=== PATIENT | female | born 1935 | race Caucasian/White ===

== ENCOUNTER 2022-03-14 15:23 | Emergency (ER) | payer OTHER, MEDICAID ==
[~2022-03-14] VITALS: Ht 160 cm; Wt 72.6 kg
[2022-03-14 15:30] VITALS: BP 140/84
--- NOTE | 2022-03-14 16:02 | NUR ---
86 Y/O F BIBA FROM [facility] C/O BLACK STOOL WITH DIARRHEA SINCE 0300 TODAY. PATIENT A&OX4, AMBULATORY WITH WALKER, STATES 5 EPISODES OF DIARRHEA "BLACK TARRY STOOL." DENIES ABD PAIN, N/V, CHEST PAIN, FEVER, CHILLS, DYSURIA, URINARY SYMPTOMS. PT PLACED ONTO CABLE PULLER. BED LOCKED IN LOWEST POSITION, SIDE RAILS X 1. PMH:DM2, HTN, RA, CELLULITIS, MEDS: UNABLE TO OBTAIN ALLERGY: PCN, LIPITOR AND TRICOR BLOOD GLUCOSE: 151
[2022-03-14 16:33] LABS: BASOPHILS % (AUTO) 0.4 % (0.0-2.0); EOSINOPHILS # (AUTO) 0.2 K/uL (0-0.4); EOSINOPHILS % (AUTO) 2.3 % (0.0-4.0); HEMATOCRIT 41.4 % (36-48); HEMOGLOBIN 13.4 g/dL (12.0-16.0); LYMPHOCYTES # (AUTO) 3.3 K/uL (2.5-16.5); LYMPHOCYTES % (AUTO) 39.5 % (20.5-51.1); MEAN CORPUSCULAR HEMOGLOBIN 32 pg (27-31); MEAN CORPUSCULAR HGB CONC 32 g/dL (33-37); MEAN CORPUSCULAR VOLUME 98.1 fL (80-94); MONOCYTES % (AUTO) 12.1 % (1.7-9.3); NEUTROPHILS # (AUTO) 3.9 K/uL (1.8-7.7); NEUTROPHILS % (AUTO) 45.7 % (42.2-75.2); PLATELET COUNT (AUTO) 258 K/uL (140-450); RED BLOOD CELL COUNT(AUTO) 4.23 MIL/uL (4.20-5.40); RED CELL DISTRIBUTION WIDTH 14.8 % (11.6-13.7); WHITE BLOOD COUNT (AUTO) 8.4 K/uL (4.8-10.8)
[2022-03-14 16:46] LABS: ALBUMIN 3.4 g/dL (3.4-5.0); ANION GAP 13.7 (8-16); ASPARTATE AMINOTRANSFERASE 16 U/L (15-37); CARBON DIOXIDE 25.8 mmol/L (21-32); CHLORIDE 107 mmol/L (98-107); CREATININE 1.6 mg/dL (0.6-1.3); GLUCOSE 155 mg/dL (74-106); MAGNESIUM 1.9 mg/dL (1.8-2.4); POTASSIUM 4.5 mmol/L (3.5-5.1); SODIUM SERUM 142 mmol/L (136-145); TOTAL BILIRUBIN 0.3 mg/dL (0.0-1.0); UREA NITROGEN, BLOOD 29 mg/dL (7-18)
[2022-03-14] MEDS ORDERED: NACL 0.9% 1,000 ML IV ONE (17:20)
[2022-03-14 17:44] VITALS: BP 106/58
--- NOTE | 2022-03-14 17:45 | NUR ---
Pt resting in position of comfort reading book. IVF continued. monitor technician in place. SpO2 96% on room air. No medical complaint at this time. Denies pain. Bed locked in lowest position, side rails x 1.
--- NOTE | 2022-03-14 19:20 | NUR ---
Report and transfer of care given to JOSE Campbell.
--- NOTE | 2022-03-14 19:32 | NUR ---
Patient discharged with v/s stable. Written and verbal after care instructions given and explained. Patient verbalized understanding. Ambulatory with steady gait. All questions addressed prior to discharge. Advised to follow up with PMD. Blood work results handed to patient. Wheelchair assisted out to lobby (son w/ transportation) ETA 20 mins.
== END 2022-03-14 19:32 | disposition home or self-care (01) ==
LOC: MED 15:23
DX: R19.7 Diarrhea, unspecified (principal); E86.0 Dehydration; N28.9 Disorder of kidney and ureter, unspecified; E11.9 Type 2 diabetes mellitus without complications; I10 Essential (primary) hypertension; E07.9 Disorder of thyroid, unspecified; Z90.710 Acquired absence of both cervix and uterus; Z85.038 Personal history of other malignant neoplasm of large intestine; Z88.0 Allergy status to penicillin; Z88.8 Allergy status to other drugs, medicaments and biological substances
CPT/HCPCS: 36415; 80053; 83735; 85025; 96360; 99283; J7030

== ENCOUNTER 2022-09-06 21:49 | Inpatient (IN) | payer OTHER ==
[~2022-09-06] VITALS: Ht 172.7 cm; Wt 97.5 kg
--- NOTE | 2022-09-06 21:53 | NUR ---
PT JAMES BLS. TAKEN TO BED 8
[2022-09-06 21:54] VITALS: BP 95/56
--- NOTE | 2022-09-06 22:00 | NUR ---
86 Y/O F presents with flu like symptoms and diarrhea xtoday. pt has a cough with congestion, runny nose and eyes xthursday. pt os ambulatory with walker, A&Ox4, skin intact, denies blood thinners. pt stated she had breast cancer on the L side. pt denies at pain at the moment. PMH- breast cancer L side, type II diabetes, Rheumatoid Arthhritis, heart murmer Allergies- penicillins, tricot, lipitor
[2022-09-06] MEDS ORDERED: FERR325E14 PO (22:05)
--- NOTE | 2022-09-06 22:21 | NUR ---
Dr. Heaton examining patient.
[2022-09-06] MEDS ORDERED: OMEP40EC23 PO (22:28)
[2022-09-06] MEDS ORDERED: MULT-2246 PO (22:28)
[2022-09-06] MEDS ORDERED: ACET-8905 PO (22:28)
[2022-09-06] MEDS ORDERED: VITB12 PO (22:28)
[2022-09-06] MEDS ORDERED: GLIP10TE PO (22:28)
[2022-09-06] MEDS ORDERED: SYN.1 PO (22:28)
[2022-09-06] MEDS ORDERED: BISA-218 RC (22:28)
[2022-09-06] MEDS ORDERED: GABA400C PO (22:28)
[2022-09-06] MEDS ORDERED: ROSU10TA1 PO (22:28)
[2022-09-06] MEDS ORDERED: METF-352 PO (22:28)
[2022-09-06] MEDS ORDERED: [UNRECOGNIZED DRUG - CODE] PO (22:28)
[2022-09-06] MEDS ORDERED: RIVA20TA4 PO (22:28)
[2022-09-06] MEDS ORDERED: ACET-2619 PO (22:28)
[2022-09-06] MEDS ORDERED: FOLI1TAB90 PO (22:28)
[2022-09-06] MEDS ORDERED: VITA1TAB44 PO (22:28)
[2022-09-06] MEDS ORDERED: DOCU-2 PO (22:28)
[2022-09-06] MEDS ORDERED: ASCO500T95 PO (22:28)
[2022-09-06] MEDS ORDERED: CHOL200072 PO (22:28)
[2022-09-06] MEDS ORDERED: LISI-487 PO (22:28)
[2022-09-06] MEDS ORDERED: GABA-689 PO ×2 (22:28)
[2022-09-06] MEDS ORDERED: [UNRECOGNIZED DRUG - CODE] PO (22:28)
[2022-09-06] MEDS ORDERED: NA P133E RC (22:30)
[2022-09-06] MEDS ORDERED: AMIO200T66 PO (22:30)
--- NOTE | 2022-09-06 22:31 | NUR ---
Med-rec reviewed.
[2022-09-06] MEDS ORDERED: NACL 0.9% 1,000 ML IV ONE (22:40)
--- NOTE | 2022-09-06 22:42 | NUR ---
xray at bedside
--- NOTE | 2022-09-06 22:50 | NUR ---
lab at bedside
[2022-09-06] MEDS ORDERED: DEXAMETHASONE 10 MG/ML VIAL IVP ONE (22:55)
[2022-09-06] MEDS ORDERED: LEVOFLOXACIN 750 MG/D5W PREMIX 150 ML IV ONE (22:55)
[2022-09-06 23:18] LABS: RED CELL DISTRIBUTION WIDTH 13.9 % (11.6-13.7); WHITE BLOOD COUNT (AUTO) 6.3 K/uL (4.8-10.8)
--- NOTE | 2022-09-06 23:25 | NUR ---
Dr. xavier at bedside
[2022-09-06 23:27] LABS: MEAN CORPUSCULAR HEMOGLOBIN 31 pg (27-31); MEAN CORPUSCULAR HGB CONC 33 g/dL (33-37); MEAN CORPUSCULAR VOLUME 93.8 fL (80-94); PLATELET COUNT (AUTO) 228 K/uL (140-450); RED BLOOD CELL COUNT(AUTO) 3.84 MIL/uL (4.20-5.40)
[2022-09-06 23:33] LABS: ALBUMIN 2.9 g/dL (3.4-5.0); ANION GAP 18.5 (8-16); ASPARTATE AMINOTRANSFERASE 17 U/L (15-37); CARBON DIOXIDE 22.6 mmol/L (21-32); CHLORIDE 98 mmol/L (98-107); GLUCOSE 262 mg/dL (74-106); POTASSIUM 4.1 mmol/L (3.5-5.1); SODIUM SERUM 135 mmol/L (136-145); TOTAL BILIRUBIN 0.5 mg/dL (0.0-1.0); UREA NITROGEN, BLOOD 36 mg/dL (7-18)
[2022-09-06 23:35] LABS: LIPASE 80 U/L (73-393)
[2022-09-06 23:42] LABS: LYMPHOCYTES % (MANUAL) 17 % (20-46); MONOCYTES % (MANUAL) 31 % (5-12)
--- NOTE | 2022-09-07 00:30 | NUR ---
Patient will be admitted to care of Dr. Harris. Admited to Tele. Will go to [id number]. Belongings list completed. Report to Joyce GARCIA.
[2022-09-07 00:55] VITALS: BP_SYST 116; BP_DIAS 7; BP_DIAS 70
--- NOTE | 2022-09-07 00:55 | NUR ---
RECEIVED PT A NEW ADMIT FROM ER. PATIENT IS AWAKE,ALERT AND ORIENTED X 4. DENIES PAIN. DENIES SHORTNESS OF BREATH. SKIN WARM AND DRY TOUCH. ORIENTED TO MST ROUTINE. BED IN THE LOWEST AND LOCKED POSITION FOR SAFETY, CALL LIGHT IN REACH, ENCOURAGED TO CALL IF ASSISTANCE IS NEEDED. PT VERBALLY AGREED.
[2022-09-07 04:00] VITALS: BP 124/75
[2022-09-07] MEDS ORDERED: ACETAMINOPHEN 325 MG TAB PO PRN (06:40)
[2022-09-07] MEDS ORDERED: MAG SULF 2000 MG/WATER PREMIX 50 ML IV PRN (06:40)
[2022-09-07] MEDS ORDERED: MORPHINE SULFATE 2 MG/ML SYR IVP PRN (06:40)
[2022-09-07] MEDS ORDERED: ALBUTEROL 0.083% 2.5 MG/3 ML NEBU INH PRN (06:40)
[2022-09-07] MEDS ORDERED: ONDANSETRON 4 MG/2 ML VIAL IVP PRN (06:40)
[2022-09-07] MEDS ORDERED: DOCUSATE SODIUM 100 MG GELCAP PO PRN (06:40)
[2022-09-07] MEDS ORDERED: POTASSIUM CHLORIDE 10 MEQ TABER PO PRN (06:40)
[2022-09-07] MEDS ORDERED: ZOLPIDEM 10 MG TAB PO PRN (06:40)
[2022-09-07] MEDS ORDERED: LORazepam 2 MG/ML VIAL IVP PRN (06:40)
--- NOTE | 2022-09-07 06:45 | NUR ---
PATIENT IS ASLEEP. ALL NEEDS ATTENDED TO. NO ACUTE RESPIRATORY DISTRESS. SAFETY PRECAUTIONS IN PLACE, CALL LIGHT IN REACH.
[2022-09-07 07:09] LABS: ANION GAP 15.7 (8-16); CARBON DIOXIDE 23.5 mmol/L (21-32); CHLORIDE 100 mmol/L (98-107); GLUCOSE 306 mg/dL (74-106); POTASSIUM 4.2 mmol/L (3.5-5.1); SODIUM SERUM 135 mmol/L (136-145); UREA NITROGEN, BLOOD 42 mg/dL (7-18)
[2022-09-07 07:24] LABS: BASOPHILS % (AUTO) 0.3 % (0.0-2.0); EOSINOPHILS % (AUTO) 0.1 % (0.0-4.0); HEMATOCRIT 33.4 % (36-48); HEMOGLOBIN 11.1 g/dL (12.0-16.0); LYMPHOCYTES # (AUTO) 0.7 K/uL (2.5-16.5); LYMPHOCYTES % (AUTO) 16.6 % (20.5-51.1); MEAN CORPUSCULAR HEMOGLOBIN 31 pg (27-31); MEAN CORPUSCULAR HGB CONC 33 g/dL (33-37); MEAN CORPUSCULAR VOLUME 93.8 fL (80-94); MONOCYTES # (AUTO) 0.9 K/uL (0.8-1.0); MONOCYTES % (AUTO) 21.3 % (1.7-9.3); NEUTROPHILS # (AUTO) 2.7 K/uL (1.8-7.7); NEUTROPHILS % (AUTO) 61.7 % (42.2-75.2); PLATELET COUNT (AUTO) 211 K/uL (140-450); RED BLOOD CELL COUNT(AUTO) 3.56 MIL/uL (4.20-5.40); RED CELL DISTRIBUTION WIDTH 13.5 % (11.6-13.7); WHITE BLOOD COUNT (AUTO) 4.4 K/uL (4.8-10.8)
[2022-09-07 08:00] VITALS: BP 107/45
--- NOTE | 2022-09-07 09:27 | NUR ---
PATIENT HAS BEEN SCREENED AND CATEGORIZED MODERATE NUTRITION RISK. PATIENT WILL BE SEEN WITHIN 3-5 DAYS OF ADMISSION. 09/06/22-09/11/[address]
[2022-09-07] MEDS: FERROUS SULFATE 325 MG TABEC PO SCH ×3 (10:48→17:00)
[2022-09-07] MEDS: ASCORBIC ACID 500 MG TAB PO SCH ×2 (10:48→20:38)
[2022-09-07] MEDS: LEVOTHYROXINE 0.1 MG TAB PO SCH (10:48)
[2022-09-07] MEDS: FOLIC ACID 1 MG TAB PO SCH (10:48)
[2022-09-07] MEDS: DOCUSATE SODIUM 100 MG GELCAP PO SCH ×2 (10:49→20:39)
[2022-09-07] MEDS: AMIODARONE 200 MG TAB PO SCH (10:49)
[2022-09-07] MEDS: CYANOCOBALAMIN 1,000 MCG TAB PO SCH (10:50)
[2022-09-07] MEDS: VIT-B COMP/VIT-C/FOLIC ACID 1 TAB PO SCH (10:54)
[2022-09-07 12:00] VITALS: BP 101/57
[2022-09-07 16:00] VITALS: BP 119/63
--- NOTE | 2022-09-07 19:34 | NUR ---
ENDORSE PATIENT IN STABLE CONDITION TO PM SHIFT NURSE WHILE PATIENT REST IN BED; PIV R.WRIST 22G SALINE PATENT. NEW ORDER FOR ACCUCHECK IN PLACE; C.DIFF SPACEMEN COLLECT AFTER PATIENT TAKE COLACE, WHICH MIGHT BE REJECTED.
--- NOTE | 2022-09-07 19:43 | NUR ---
RECEIVED REPORT FROM DAY SHIFT NURSE FOR CONTINUITY OF CARE. PATIENT IS AWAKE AND STABLE IN BED, LYING SEMI FOWLERS POSITION. A&O X4. DENIES ANY PAIN AT THIS TIME. ON O2, 2L VIA NC WITH NO CURRENT S/SX OF ACUTE DISTRESS NOTED. RESPIRATIONS LABORED. PATIENT HAS IV SITE LOCATED AT THE RIGHT WRIST 22 GAUGE, SALINE LOCK. ALL SAFETY MEASURES IN PLACE, BED TO LOWEST POINT, CALL LIGHT WITHIN REACH, WILL CONTINUE TO MONITOR.
[2022-09-07 20:00] VITALS: BP 128/64
[2022-09-07] MEDS: BLOOD GLUCOSE MONITORING 1 DEV DEV FS SCH (20:50)
--- NOTE | 2022-09-07 20:52 | NUR ---
SCHEDULED MEDICATIONS GIVEN. BLOOD GLUCOSE LEVEL OF 120, NO COVERAGE NEEDED. WILL CONTINUE TO MONITOR.
[2022-09-07] MEDS: DEXAMETHASONE 4 MG/ML VIAL IVP SCH (23:49)
[2022-09-08] VITALS: BP 115/60
[2022-09-08 04:00] VITALS: BP 120/54
[2022-09-08] MEDS: INSULIN LISPRO SLIDING SCALE 100 UNITS/ML VIAL SUBQ PRN ×3 (06:34→20:28)
[2022-09-08] MEDS: BLOOD GLUCOSE MONITORING 1 DEV DEV FS SCH ×4 (06:34→20:27)
[2022-09-08 07:11] LABS: BASOPHILS % (AUTO) 0.1 % (0.0-2.0); HEMOGLOBIN 13.2 g/dL (12.0-16.0); LYMPHOCYTES # (AUTO) 1.1 K/uL (2.5-16.5); LYMPHOCYTES % (AUTO) 25.1 % (20.5-51.1); MEAN CORPUSCULAR HEMOGLOBIN 31 pg (27-31); MEAN CORPUSCULAR HGB CONC 33 g/dL (33-37); MEAN CORPUSCULAR VOLUME 94.2 fL (80-94); MONOCYTES # (AUTO) 0.5 K/uL (0.8-1.0); MONOCYTES % (AUTO) 10.6 % (1.7-9.3); NEUTROPHILS # (AUTO) 2.8 K/uL (1.8-7.7); NEUTROPHILS % (AUTO) 64.2 % (42.2-75.2); PLATELET COUNT (AUTO) 255 K/uL (140-450); RED BLOOD CELL COUNT(AUTO) 4.25 MIL/uL (4.20-5.40); RED CELL DISTRIBUTION WIDTH 13.9 % (11.6-13.7); WHITE BLOOD COUNT (AUTO) 4.3 K/uL (4.8-10.8)
[2022-09-08 07:24] LABS: CARBON DIOXIDE 23.4 mmol/L (21-32); CHLORIDE 99 mmol/L (98-107); CREATININE 1.9 mg/dL (0.6-1.3); GLUCOSE 270 mg/dL (74-106); POTASSIUM 4.4 mmol/L (3.5-5.1); SODIUM SERUM 137 mmol/L (136-145); UREA NITROGEN, BLOOD 53 mg/dL (7-18)
[2022-09-08 08:00] VITALS: BP 130/70
[2022-09-08] MEDS: VIT-B COMP/VIT-C/FOLIC ACID 1 TAB PO SCH (08:52)
[2022-09-08] MEDS: FOLIC ACID 1 MG TAB PO SCH (08:52)
[2022-09-08] MEDS: AMIODARONE 200 MG TAB PO SCH (08:52)
[2022-09-08] MEDS: CYANOCOBALAMIN 1,000 MCG TAB PO SCH (08:53)
[2022-09-08] MEDS: ASCORBIC ACID 500 MG TAB PO SCH ×2 (08:53→20:05)
[2022-09-08] MEDS: DOCUSATE SODIUM 100 MG GELCAP PO SCH ×2 (08:53→20:07)
[2022-09-08] MEDS: FERROUS SULFATE 325 MG TABEC PO SCH ×3 (08:54→17:00)
[2022-09-08] MEDS: LEVOTHYROXINE 0.1 MG TAB PO SCH (08:54)
[2022-09-08 12:00] VITALS: BP 96/67
[2022-09-08] MEDS ORDERED: VANCOMYCIN PER PHARMACY MC PRN (14:45)
[2022-09-08 16:00] VITALS: BP 112/50
[2022-09-08] MEDS ORDERED: VANCOMYCIN 1,000 MG in DEXTROSE 5% 250 ML IV SCH (16:00)
--- NOTE | 2022-09-08 19:20 | NUR ---
ENDORSE PATIENT IN STABLE CONDITION TO PM SHIFT NURSE WHILE PATIENT REST IN BED; PIV R.WRIST 22G SALINE PATENT. MOST RECENT ACCUCHECK 139
--- NOTE | 2022-09-08 19:25 | NUR ---
RECEIVED REPORT FROM DAY SHIFT NURSE FOR CONTINUITY OF CARE. PATIENT IS AWAKE AND STABLE. A&O X4. CURRENTLY ON 2 LITERS VIA NASAL CANNULA WITH NO IMMEDIATE SIGNS OR SYMPTOMS OF ACUTE DISTRESS. RESPIRATIONS EVEN. SKIN IS INTACT. PATIENT HAS IV SITE LOCATED AT THE RIGHT WRIST, 22 GAUGE, SALINE LOCK. SAFETY MEASURES IN PLACE, WILL CONTINUE TO MAKE FREQUENT ROUNDS.
[2022-09-08 20:00] VITALS: BP 130/63
--- NOTE | 2022-09-08 20:40 | NUR ---
SCHEDULED MEDICATIONS GIVEN PER MD ORDER. 2100 ACCUCHECK READ AT 170. 2 UNITS OF INSULIN WAS ADMINISTERED. WILL CONTINUE TO MONITOR.
[2022-09-08] MEDS ORDERED: LEVOFLOXACIN 750 MG/D5W PREMIX 150 ML IV SCH (23:00)
[2022-09-08] MEDS: DEXAMETHASONE 4 MG/ML VIAL IVP SCH (23:39)
[2022-09-09] VITALS: BP 120/69
[2022-09-09 04:00] VITALS: BP 116/39
[2022-09-09] MEDS: BLOOD GLUCOSE MONITORING 1 DEV DEV FS SCH ×2 (06:34→11:39)
[2022-09-09] MEDS: INSULIN LISPRO SLIDING SCALE 100 UNITS/ML VIAL SUBQ PRN ×2 (06:37→11:40)
--- NOTE | 2022-09-09 07:10 | NUR ---
ASSUMED CONTINUITY OF CARE. INITIAL ASSESSMENT DONE. KEEP COMFORTABLE ON BED. EXPLAINED DIAGNOSIS, PLAN OF CARE, PAIN MANAGEMENT TEACHING, DROPLET ISOLATION PRECAUTION, FALL PRECAUTION, USE OF CALL LIGHT/BED/TV/BATHROOM. VERBALIZED UNDERSTANDING. CALL LIGHT WITHIN REACH.
--- NOTE | 2022-09-09 07:20 | NUR ---
LAST ACCUCHECK WAS 307. 8 UNITS OF INSULIN WAS ADMINISTERED. CLEANED AND CHANGED PATIENT. SAFETY MEASURES IN PLACE. ENDORSED PATIENT TO DAY SHIFT IN STABLE CONDITION.
[2022-09-09 07:36] LABS: BASOPHILS % (AUTO) 0.1 % (0.0-2.0); EOSINOPHILS % (AUTO) 0.1 % (0.0-4.0); HEMATOCRIT 36.2 % (36-48); LYMPHOCYTES # (AUTO) 1.2 K/uL (2.5-16.5); LYMPHOCYTES % (AUTO) 24.7 % (20.5-51.1); MEAN CORPUSCULAR HEMOGLOBIN 31 pg (27-31); MEAN CORPUSCULAR HGB CONC 33 g/dL (33-37); MEAN CORPUSCULAR VOLUME 92.8 fL (80-94); MONOCYTES # (AUTO) 0.6 K/uL (0.8-1.0); MONOCYTES % (AUTO) 12.2 % (1.7-9.3); NEUTROPHILS % (AUTO) 62.9 % (42.2-75.2); PLATELET COUNT (AUTO) 298 K/uL (140-450); RED CELL DISTRIBUTION WIDTH 13.4 % (11.6-13.7); WHITE BLOOD COUNT (AUTO) 4.8 K/uL (4.8-10.8)
[2022-09-09 07:48] LABS: ANION GAP 15.3 (8-16); CARBON DIOXIDE 22.7 mmol/L (21-32); CHLORIDE 99 mmol/L (98-107); CREATININE 1.7 mg/dL (0.6-1.3); GLUCOSE 313 mg/dL (74-106); SODIUM SERUM 133 mmol/L (136-145); UREA NITROGEN, BLOOD 50 mg/dL (7-18)
[2022-09-09 08:00] VITALS: BP 144/73
[2022-09-09] MEDS: DOCUSATE SODIUM 100 MG GELCAP PO SCH (08:56)
[2022-09-09] MEDS: AMIODARONE 200 MG TAB PO SCH (08:57)
[2022-09-09] MEDS: FERROUS SULFATE 325 MG TABEC PO SCH ×2 (08:57→12:01)
[2022-09-09] MEDS: FOLIC ACID 1 MG TAB PO SCH (08:59)
[2022-09-09] MEDS: LEVOTHYROXINE 0.1 MG TAB PO SCH (09:00)
[2022-09-09] MEDS: VIT-B COMP/VIT-C/FOLIC ACID 1 TAB PO SCH (09:00)
[2022-09-09] MEDS: CYANOCOBALAMIN 1,000 MCG TAB PO SCH (09:01)
[2022-09-09] MEDS: ASCORBIC ACID 500 MG TAB PO SCH (09:02)
[2022-09-09] MEDS ORDERED: DEC4 PO (09:11)
--- NOTE | 2022-09-09 10:19 | NUR ---
CALLED [facility] SCHMITZ AT SPOKE TO [facility] REGARDING PT. D/C ORDER BACK TO THEIR FACILITY. ACCORDING TO [facility], THEY CAN'T RECEIVED PT. DUE TO NON-AVAILABILITY OF ISOLATION ROOM. INFORMED CHARGE NURSE SUNDAR -JOSE. ALSO INFORMED BLEACH PACKER -MURALI.
[2022-09-09 12:00] VITALS: BP 122/76
--- NOTE | 2022-09-09 12:11 | NUR ---
DC PLANNING: RECEIVED A MESSAGE FROM [facility] BIANCHI PER [facility] CAN NOT TAKE PATIENT BACK BECAUSE OF COVID. CM CALLED PT'S SON SPOKE WITH CHUCK DISCUSSED THE DC PLAN TO SNF FOR COVID TREATMENT AND PHYSICAL THERAPY. PER CHUCK HE CAN'T TAKE HER HOME AND OK TO GO TO ANY ACCEPTED FACILITY. [facility] ACCEPTED PATIENT CAN GO TO ROOM 101B # TO GIVE REPORT [phone] PER PRIMA WILL ARRANGE TRANSPORT [facility]IL [facility] TIME BETWEEN 2-3PM NOTIFIED [place] SINGH CM TO FOLLOW
--- NOTE | 2022-09-09 12:42 | NUR ---
CALLED PT. SAMMI ALBERTO AT AND INFORMED OF PT. D/C TO [facility] ROOM 101-B.
--- NOTE | 2022-09-09 12:52 | NUR ---
CALLED [facility] AT SPOKE TO MARYANNE -SKIVER COUNTER AND GAVE REPORT FOR PT. TRANSFER TO THEIR FACILITY.
--- NOTE | 2022-09-09 16:09 | NUR ---
D/C TO [facility] VIA [facility] WITH [facility]ICAL TRANSPORTER. IN STABLE CONDITION. INFORMED CHARGE NURSE SUNDAR BEAULIEU
== END 2022-09-09 16:10 | DRG 177 ==
LOC: MED 21:49 → MTU 23:48
PROVIDERS: ADMIT Family Medicine; ATTEND Family Medicine
DX: U07.1 COVID-19 (principal); J12.82 Pneumonia due to coronavirus disease 2019; J96.01 Acute respiratory failure with hypoxia; N17.0 Acute kidney failure with tubular necrosis; E44.0 Moderate protein-calorie malnutrition; E87.1 Hypo-osmolality and hyponatremia; C18.9 Malignant neoplasm of colon, unspecified; J44.0 Chronic obstructive pulmonary disease with (acute) lower respiratory infection; A08.4 Viral intestinal infection, unspecified; E83.51 Hypocalcemia; I10 Essential (primary) hypertension; E11.9 Type 2 diabetes mellitus without complications; M06.9 Rheumatoid arthritis, unspecified; Z85.038 Personal history of other malignant neoplasm of large intestine; Z88.0 Allergy status to penicillin; Z88.8 Allergy status to other drugs, medicaments and biological substances; Z68.32 Body mass index [BMI] 32.0-32.9, adult
CPT/HCPCS: 36415; 71045; 80048; 80053; 82948; 83605; 83690; 83735; 83880; 84484; 85025; 87040; 87045; 87070; 87081; 89055; 93005; 96365; 96375; 97116; 97163-GP; 99291; J1100; J1644; J1956; J3370; J3420; J7060; Q0092